=== PATIENT | male | born 1950 | race African-American/Black ===

== ENCOUNTER 2020-12-31 04:51 | Inpatient (IN) | payer MEDICARE, OTHER ==
[2020-12-31] VITALS (30 sets, daily range): BP systolic 102–148; BP diastolic 61–91
[~2020-12-31] VITALS: Ht 185.4 cm; Wt 81.0 kg
[2020-12-31] MEDS ORDERED: MORPHINE SULFATE 4 MG/ML CPJ (NOT FOR IM USE) IV STA (05:08)
[2020-12-31] MEDS ORDERED: ONDANSETRON HCL 4MG/2ML INJ IV STA (05:08)
[2020-12-31] MEDS ORDERED: ETOMIDATE 2MG/ML 10ML VIAL IV ONE ×2 (05:15→09:42)
[2020-12-31] MEDS ORDERED: MIDAZOLAM HCL 100 MG in DEXT 5% WATER 80 ML IV ONE (05:15)
[2020-12-31] MEDS ORDERED: PROPOFOL 10MG/ML 100ML 100 ML IV ONE (05:15)
[2020-12-31] MEDS ORDERED: SUCCINYLCHOLINE CHLORIDE 200MG/10ML IV ONE ×2 (05:15→09:42)
[2020-12-31 05:26] LABS: HEMATOCRIT. 29.1 % (42.0-52.0); HEMOGLOBIN. 10.1 g/dL (14.0-18.0); MEAN CORPUSCULAR HEMOGLOBIN 35.5 pg (28.0-32.0); MEAN CORPUSCULAR VOLUME 102.6 fL (80.0-94.0); MEAN PLATELET VOLUME 6.9 fl (7.4-10.4); PLATELET 237 x1000/uL (130-400); RED BLOOD CELL COUNT 2.84 mill/uL (4.7-6.1); RED CELL DISTRIBUTION WIDTH 14.2 % (11.6-14.6)
[2020-12-31] MEDS ORDERED: DIPHENHYDRAMINE 50MG/ML VIAL IV ONE (05:30)
[2020-12-31] MEDS ORDERED: FAMOTIDINE 20MG/2ML VIAL IV ONE (05:30)
[2020-12-31] MEDS ORDERED: MIDAZOLAM HCL 100 MG in SODIUM CHLORIDE 0.9% 100 ML IV PRN ×2 (05:30→17:15)
[2020-12-31] MEDS ORDERED: DEXAMETHASONE 10 MG/ML VIAL IV ONE (05:30)
[2020-12-31] MEDS ORDERED: SODIUM CHLORIDE 0.9% 1,000 ML IV ONE (05:30)
[2020-12-31 05:34] LABS: CHLORIDE 103 mEq/L (98-107)
[2020-12-31 05:53] LABS: INR 0.9; PROTHROMBIN TIME 10.2 sec (9.6-11.0)
[2020-12-31] MEDS ORDERED: IOHEXOL-300 100 ML BOTTLE ONE ×2 (07:17→10:35)
[2020-12-31 07:52] LABS: PLATELET ESTIMATE NORMAL
[2020-12-31] MEDS: PROPOFOL 10MG/ML 100ML 100 ML IV PRN ×2 (09:08→12:46)
[2020-12-31] MEDS ORDERED: CLONIDINE 0.1MG TABLET PO PRN (09:15)
[2020-12-31] MEDS ORDERED: ACETAMINOPHEN 325MG TABLET PO PRN (09:15)
[2020-12-31] MEDS ORDERED: ONDANSETRON HCL 4MG/2ML INJ IV PRN (09:15)
[2020-12-31] MEDS ORDERED: IPRATROPIUM/ALBUTEROL 0.5-3(2.5)MG/3ML NEB HHN PRN (09:15)
[2020-12-31] MEDS ORDERED: CEFTRIAXONE 1 G PREMIX 50 ML IV SCH (09:15)
[2020-12-31] MEDS ORDERED: DIPHENHYDRAMINE 50MG/ML VIAL IV PRN (09:15)
[2020-12-31] MEDS: FAMOTIDINE 20MG/2ML VIAL IV SCH ×2 (09:33→20:20)
[2020-12-31] MEDS: SODIUM CHLORIDE 0.9% 1,000 ML IV SCH ×2 (09:33→20:21)
[2020-12-31 09:44] LABS: BG BASE EXCESS -0.3 mmol/L (-2.0-2.0); BG CARBOXYHEMOGLOBIN 0.3 % (0.5-1.5); BG DEOXYHEMOGLOBIN 1.6 % (0.0-5.0); BG FRACTION INSPIRED OXYGEN 30; BG HCO3 ACT 21.7 mmol/L (22.0-26.0); BG METHEMOGLOBIN 0.3 % (0.0-1.5); BG OXYGEN SATURATION 98.4 % (92.0-98.5); BG OXYHEMOGLOBIN 97.8 % (94.0-97.0); BG PCO2 27.2 mmHg (35.0-45.0); BG PH 7.519 (7.350-7.450); BG PO2 110.5 mmHg (75.0-100.0); BG SAMPLE SITE RIGHT RADIAL; BG TOTAL HEMOGLOBIN 11.1 g/dL (12.0-18.0); BG VENT MODE VENT - AC
[2020-12-31] MEDS: CEFTRIAXONE 1,000 MG in DEXTROSE 5% WATER 50 ML IV SCH (11:04)
[2020-12-31] MEDS: AZITHROMYCIN 500 MG in DEXT 5% WATER 250 ML IV SCH (11:04)
[2020-12-31] MEDS ORDERED: PROPOFOL 10MG/ML 100ML 100 ML IV PRN (13:00)
[2020-12-31] MEDS: METHYLPREDNISOLONE SOD SUCC 125 MG/2 ML VIAL IV SCH ×2 (13:36→23:37)
[2020-12-31] MEDS ORDERED: FENTANYL CITRATE/PF 2,500 MCG in SODIUM CHLORIDE 0.9% 200 ML IV PRN (17:15)
[2020-12-31] MEDS ORDERED: MIDAZOLAM 100MG/100ML PMX 100 ML IV PRN (17:15)
[2020-12-31] MEDS: IPRATROPIUM/ALBUTEROL 0.5-3(2.5)MG/3ML NEB HHN SCH (20:10)
[2021-01-01] VITALS (66 sets, daily range): BP systolic 103–169; BP diastolic 49–116
[2021-01-01] MEDS ORDERED: DOPAMINE 400MG/250ML PREMIX 250 ML IV PRN (00:15)
[2021-01-01] MEDS: IPRATROPIUM/ALBUTEROL 0.5-3(2.5)MG/3ML NEB HHN SCH ×4 (01:19→20:20)
[2021-01-01] MEDS: METHYLPREDNISOLONE SOD SUCC 125 MG/2 ML VIAL IV SCH ×3 (05:18→21:23)
[2021-01-01 06:21] LABS: HEMATOCRIT. 33.1 % (42.0-52.0); HEMOGLOBIN. 11.2 g/dL (14.0-18.0); MEAN CORPUSCULAR VOLUME 103.3 fL (80.0-94.0); MEAN PLATELET VOLUME 7.5 fl (7.4-10.4); PLATELET 234 x1000/uL (130-400); RED BLOOD CELL COUNT 3.21 mill/uL (4.7-6.1); RED CELL DISTRIBUTION WIDTH 14.4 % (11.6-14.6)
[2021-01-01 06:23] LABS: CHLORIDE 106 mEq/L (98-107)
[2021-01-01 06:33] LABS: LDL CHOLESTEROL 91 mg/dL (5-100)
[2021-01-01 06:35] LABS: HDL CHOLESTEROL 67 mg/dL (40-59)
[2021-01-01 07:05] LABS: BG BASE EXCESS -0.7 mmol/L (-2.0-2.0); BG CARBOXYHEMOGLOBIN 0.1 % (0.5-1.5); BG DEOXYHEMOGLOBIN 4.5 % (0.0-5.0); BG HCO3 ACT 21.5 mmol/L (22.0-26.0); BG METHEMOGLOBIN 0.2 % (0.0-1.5); BG OXYGEN SATURATION 95.5 % (92.0-98.5); BG OXYHEMOGLOBIN 95.2 % (94.0-97.0); BG PCO2 28.2 mmHg (35.0-45.0); BG PO2 77.6 mmHg (75.0-100.0); BG SAMPLE SITE RIGHT RADIAL; BG TOTAL HEMOGLOBIN 11.8 g/dL (12.0-18.0); BG VENT MODE VENT - AC
[2021-01-01] MEDS: FAMOTIDINE 20MG/2ML VIAL IV SCH ×2 (08:35→21:23)
[2021-01-01] MEDS ORDERED: ENOXAPARIN 40MG/0.4ML SYR SUBCUT SCH ×2 (09:00→14:00)
[2021-01-01] MEDS: SODIUM CHLORIDE 0.9% 1,000 ML IV SCH ×2 (09:55→21:23)
[2021-01-01] MEDS: ASPIRIN 81MG TABLET PO SCH (09:56)
[2021-01-01] MEDS: AZITHROMYCIN 500 MG in DEXT 5% WATER 250 ML IV SCH (09:56)
[2021-01-01 10:26] LABS: BG BASE EXCESS -0.7 mmol/L (-2.0-2.0); BG CARBOXYHEMOGLOBIN 0.3 % (0.5-1.5); BG DEOXYHEMOGLOBIN 3.2 % (0.0-5.0); BG FRACTION INSPIRED OXYGEN 30; BG HCO3 ACT 21.8 mmol/L (22.0-26.0); BG METHEMOGLOBIN 0.3 % (0.0-1.5); BG OXYGEN SATURATION 96.8 % (92.0-98.5); BG OXYHEMOGLOBIN 96.2 % (94.0-97.0); BG PCO2 29.7 mmHg (35.0-45.0); BG PH 7.484 (7.350-7.450); BG SAMPLE SITE RIGHT RADIAL; BG TOTAL HEMOGLOBIN 12.2 g/dL (12.0-18.0); BG VENT MODE VENT - CPAP
[2021-01-01 10:28] LABS: CLARITY URINE TURBID (CLEAR); COLOR URINE RED (YELLOW); KETONES URINE NEGATIVE (NEGATIVE); LEUKOCYTE ESTERASE URINE 1+ (NEGATIVE); NITRITE URINE NEGATIVE (NEGATIVE); OCCULT BLOOD URINE 3+ (NEGATIVE); PROTEIN URINE 3+ (NEGATIVE); SPECIFIC GRAVITY URINE 1.023 (1.005-1.030); UROBILINOGEN URINE 0.2 E.U./dL (0.2-1.0)
[2021-01-01] MEDS: CEFTRIAXONE 1,000 MG in DEXTROSE 5% WATER 50 ML IV SCH (12:06)
[2021-01-01 12:23] LABS: *BENZODIAZEPINES SCREEN URINE PRESUMTIVE POSITIVE (NEGATIVE); METHADONE URINE SCREEN NEGATIVE (NEGATIVE); OPIATES URINE SCREEN PRESUMTIVE POSITIVE (NEGATIVE); PHENCYCLIDINE URINE SCREEN NEGATIVE (NEGATIVE)
[2021-01-01 12:24] LABS: *AMPHETAMINES SCREEN URINE NEGATIVE (NEGATIVE); *BARBITURATES SCREEN URINE NEGATIVE (NEGATIVE); *COCAINE SCREEN URINE NEGATIVE (NEGATIVE); CANNABINOID URINE SCREEN PRESUMTIVE POSITIVE (NEGATIVE)
[2021-01-01 12:39] LABS: CREATINE KINASE MB FRACTION 14.9 ng/mL (0.5-3.6)
[2021-01-01 18:40] LABS: PLATELET ESTIMATE NORMAL
[2021-01-01] MEDS: ENOXAPARIN 80MG/0.8ML SYR SUBCUT SCH (21:23)
[2021-01-02] VITALS (25 sets, daily range): BP systolic 110–147; BP diastolic 65–93
[2021-01-02] MEDS: IPRATROPIUM/ALBUTEROL 0.5-3(2.5)MG/3ML NEB HHN SCH ×4 (01:54→20:28)
[2021-01-02 06:33] LABS: HEMATOCRIT. 29.4 % (42.0-52.0); HEMOGLOBIN. 10.2 g/dL (14.0-18.0); MEAN CORPUSCULAR HEMOGLOBIN 35.7 pg (28.0-32.0); MEAN CORPUSCULAR VOLUME 103.3 fL (80.0-94.0); MEAN PLATELET VOLUME 7.7 fl (7.4-10.4); PLATELET 236 x1000/uL (130-400); RED BLOOD CELL COUNT 2.85 mill/uL (4.7-6.1); RED CELL DISTRIBUTION WIDTH 14.3 % (11.6-14.6)
[2021-01-02 06:34] LABS: CHLORIDE 110 mEq/L (98-107)
[2021-01-02] MEDS: METHYLPREDNISOLONE SOD SUCC 125 MG/2 ML VIAL IV SCH ×2 (06:41→21:57)
[2021-01-02] MEDS: ENOXAPARIN 80MG/0.8ML SYR SUBCUT SCH (06:41)
[2021-01-02 06:43] LABS: CREATINE KINASE 176 IU/L (39-308); T4 FREE 1.23 ng/dL (0.76-1.46)
[2021-01-02 06:46] LABS: CREATINE KINASE MB FRACTION 4.6 ng/mL (0.5-3.6)
[2021-01-02] MEDS: ASPIRIN 81MG TABLET PO SCH (08:11)
[2021-01-02] MEDS: FAMOTIDINE 20MG/2ML VIAL IV SCH ×2 (08:11→21:56)
[2021-01-02 10:45] LABS: PLATELET ESTIMATE NORMAL
[2021-01-02] MEDS: AZITHROMYCIN 500 MG in DEXT 5% WATER 250 ML IV SCH (11:12)
[2021-01-02] MEDS: CEFTRIAXONE 1,000 MG in DEXTROSE 5% WATER 50 ML IV SCH (11:13)
[2021-01-03] VITALS (34 sets, daily range): BP systolic 120–157; BP diastolic 25–97
[2021-01-03] MEDS: IPRATROPIUM/ALBUTEROL 0.5-3(2.5)MG/3ML NEB HHN SCH ×4 (01:58→20:06)
[2021-01-03 05:52] LABS: HEMATOCRIT. 27.3 % (42.0-52.0); HEMOGLOBIN. 9.6 g/dL (14.0-18.0); MEAN CORPUSCULAR HEMOGLOBIN 36.1 pg (28.0-32.0); MEAN PLATELET VOLUME 7.8 fl (7.4-10.4); PLATELET 239 x1000/uL (130-400); RED BLOOD CELL COUNT 2.67 mill/uL (4.7-6.1); RED CELL DISTRIBUTION WIDTH 13.9 % (11.6-14.6)
[2021-01-03 06:02] LABS: CHLORIDE 109 mEq/L (98-107)
[2021-01-03] MEDS ORDERED: HEPARIN SODIUM 1,000 UNIT/1ML VIAL IV ONE (08:32)
[2021-01-03] MEDS ORDERED: NICARDIPINE 100MCG/ML 10ML VIAL (CATH LAB) IV ONE (08:32)
[2021-01-03] MEDS ORDERED: NITROGLYCERIN 50MCG/ML 10ML VIAL (CATH LAB) IV ONE (08:32)
[2021-01-03] MEDS: FAMOTIDINE 20MG/2ML VIAL IV SCH ×2 (08:45→21:41)
[2021-01-03] MEDS: METHYLPREDNISOLONE SOD SUCC 125 MG/2 ML VIAL IV SCH (08:45)
[2021-01-03] MEDS: ASPIRIN 81MG TABLET PO SCH (08:45)
[2021-01-03] MEDS: AZITHROMYCIN 500 MG in DEXT 5% WATER 250 ML IV SCH (10:50)
[2021-01-03] MEDS ORDERED: FENTANYL CITRATE/PF 50MCG/ML 2ML VIAL ONE (11:59)
[2021-01-03] MEDS ORDERED: MIDAZOLAM HCL 2 MG/2 ML VIAL ONE (11:59)
[2021-01-03] MEDS ORDERED: IODIXANOL 320MG/ML 100 ML BOTTLE IV ONE (12:00)
[2021-01-03] MEDS ORDERED: LIDOCAINE HCL 1% 20ML VIAL (Pyxis) INJ ONE (12:00)
[2021-01-03] MEDS ORDERED: ACETAMINOPHEN 325MG TABLET PO PRN (12:30)
[2021-01-03] MEDS ORDERED: ATROPINE SULFATE 1MG/10ML SYR IV PRN (12:30)
[2021-01-03] MEDS ORDERED: ONDANSETRON HCL 4MG/2ML INJ IV PRN (12:30)
[2021-01-03] MEDS: CEFTRIAXONE 1,000 MG in DEXTROSE 5% WATER 50 ML IV SCH (13:10)
[2021-01-03 13:26] LABS: PLATELET ESTIMATE NORMAL
[2021-01-04] VITALS (15 sets, daily range): BP systolic 112–153; BP diastolic 63–99
[2021-01-04] MEDS: IPRATROPIUM/ALBUTEROL 0.5-3(2.5)MG/3ML NEB HHN SCH ×2 (01:28→10:35)
[2021-01-04 06:25] LABS: BASOPHILS % 0.1 % (0.0-2.0); HEMATOCRIT. 28.9 % (42.0-52.0); HEMOGLOBIN. 9.7 g/dL (14.0-18.0); LYMPHOCYTES % 10.9 % (20.0-50.0); MEAN CORPUSCULAR HEMOGLOBIN 34.9 pg (28.0-32.0); MEAN CORPUSCULAR VOLUME 103.8 fL (80.0-94.0); MEAN PLATELET VOLUME 7.7 fl (7.4-10.4); PLATELET 264 x1000/uL (130-400); RED BLOOD CELL COUNT 2.78 mill/uL (4.7-6.1); RED CELL DISTRIBUTION WIDTH 13.6 % (11.6-14.6)
[2021-01-04 06:31] LABS: CHLORIDE 108 mEq/L (98-107)
[2021-01-04] MEDS ORDERED: POTASSIUM CHLORIDE 20MEQ TABLET SR PO SCH (08:45)
[2021-01-04] MEDS ORDERED: METHYLPREDNISOLONE SOD SUCC 125 MG/2 ML VIAL IV SCH (09:00)
[2021-01-04] MEDS: ASPIRIN 81MG TABLET PO SCH (09:38)
[2021-01-04] MEDS: FAMOTIDINE 20MG/2ML VIAL IV SCH (09:38)
[2021-01-04] MEDS ORDERED: P20 MT (10:54)
[2021-01-04] MEDS ORDERED: AZIT500T8 MT (10:54)
[2021-01-04] MEDS ORDERED: FAMO20TA8 MT (10:54)
[2021-01-04] MEDS ORDERED: ASPI-1160 PO (10:54)
[2021-01-04] MEDS: CEFTRIAXONE 1,000 MG in DEXTROSE 5% WATER 50 ML IV SCH (11:25)
[2021-01-04] MEDS: AZITHROMYCIN 500 MG in DEXT 5% WATER 250 ML IV SCH (11:25)
== END 2021-01-04 13:15 | disposition home health service (06) | DRG 208 ==
LOC: ER 04:51 → CVICU 05:43 → EDBEDREQTM 06:03 → EDBEDREQ 06:03 → EDBEDREQSVC 06:08 → ENRESERV 07:53
PROVIDERS: ADMIT Internal Medicine; ATTEND Internal Medicine
PROC: 5A1945Z Respiratory Ventilation, 24-96 Consecutive Hours (ICD-10-PCS; principal; 2020-12-31)
PROC: 0BH17EZ Insertion of Endotracheal Airway into Trachea, Via Natural or Artificial Opening (ICD-10-PCS; 2020-12-31)
PROC: 4A023N7 Measurement of Cardiac Sampling and Pressure, Left Heart, Percutaneous Approach (ICD-10-PCS; 2021-01-03)
PROC: B2111ZZ Fluoroscopy of Multiple Coronary Arteries using Low Osmolar Contrast (ICD-10-PCS; 2021-01-03)
PROC: B2151ZZ Fluoroscopy of Left Heart using Low Osmolar Contrast (ICD-10-PCS; 2021-01-03)
DX: J96.00 Acute respiratory failure, unspecified whether with hypoxia or hypercapnia (principal); J18.9 Pneumonia, unspecified organism; I21.A1 Myocardial infarction type 2; I50.20 Unspecified systolic (congestive) heart failure; I43 Cardiomyopathy in diseases classified elsewhere; T78.3XXA Angioneurotic edema, initial encounter; T46.4X5A Adverse effect of angiotensin-converting-enzyme inhibitors, initial encounter; D64.9 Anemia, unspecified; I08.1 Rheumatic disorders of both mitral and tricuspid valves; Z20.822 Contact with and (suspected) exposure to COVID-19; J38.4 Edema of larynx; I11.0 Hypertensive heart disease with heart failure; I25.10 Atherosclerotic heart disease of native coronary artery without angina pectoris; R13.10 Dysphagia, unspecified; N28.9 Disorder of kidney and ureter, unspecified; R00.1 Bradycardia, unspecified; I25.2 Old myocardial infarction; Y93.9 Activity, unspecified; Y92.89 Other specified places as the place of occurrence of the external cause; Y99.8 Other external cause status
CPT/HCPCS: 36415; 36600; 70487; 71045; 80048; 80053; 80061; 80305; 81003; 82375; 82550; 82553; 82805; 83735; 84439; 84443; 84481; 84484; 85025; 86850; 86900; 87070; 87077; 87426; 92610; 93005; 93306; 93458; 93970; 94002; 97162; 99291; C1769; C1887; C1893; J0330; J0456; J0696; J1100; J1200; J1644; J1650; J2250; J2270; J2405; J2704; J2930; J3010; J3490; J7030; J7050; J7060; Q9967